=== PATIENT | male | born 1950 | race Caucasian/White ===

== ENCOUNTER → 2020-02-28 21:12 | Outpatient (CLI) | payer MEDICARE ==
[2020-02-28 21:32] LABS: HEMATOCRIT 50.7 % (42.0-54.0); HEMOGLOBIN 15.5 g/dL (13.5-17.5); MCH 26.7 pg (26.0-34.0); MCHC 30.6 g/dL (31.0-37.0); MCV 87.3 fL (80.0-100.0); RBC 5.81 10x6/uL (4.20-6.10); RDW 14.5 % (11.5-14.5); WBC 9.6 10x3/uL (4.8-10.8)
[2020-02-28 21:43] LABS: PLATELET COUNT 36 10x3/uL (130-400)
[2020-02-28 22:48] LABS: PLATELET ESTIMATE DECREASED
[2020-02-29 10:58] LABS: EOSINOPHILS 1 % (0-7); LYMPHOCYTES 11 % (15-50); MONOCYTES 2 % (2-11); NEUTROPHILS 86 % (40-80)
== END | disposition home or self-care (01) ==
LOC: D.LABREF 21:12
PROVIDERS: ATTEND Legal Medicine
DX: D69.49 Other primary thrombocytopenia (principal); C61 Malignant neoplasm of prostate

== ENCOUNTER → 2020-06-18 15:12 | Outpatient (CLI) | payer MEDICARE | END | disposition home or self-care (01) | LOC: D.US 15:12 | PROVIDERS: ATTEND Family Medicine | DX: R52 Pain, unspecified (principal); R60.9 Edema, unspecified ==